=== PATIENT | female | born 1980 | race Caucasian/White ===

== ENCOUNTER 2016-07-16 12:07 | Outpatient (CLI) | payer BC, OTHER | END 2016-07-16 12:08 | disposition home or self-care (01) | DX: R42 Dizziness and giddiness (principal); R51 Headache; H53.9 Unspecified visual disturbance ==

== ENCOUNTER 2018-11-05 13:31 | Outpatient (CLI) | payer OTHER | END 2018-11-05 13:32 | disposition home or self-care (01) | LOC: NS 13:31 | PROVIDERS: ATTEND Family Medicine | DX: Z71.3 Dietary counseling and surveillance (principal); O24.419 Gestational diabetes mellitus in pregnancy, unspecified control | CPT/HCPCS: 97802 ==

== ENCOUNTER 2020-04-07 19:12 | Outpatient (CLI) | payer MEDICAID | END 2020-04-07 19:13 | disposition home or self-care (01) | LOC: COV 19:12 | PROVIDERS: ATTEND Family Medicine | DX: Z20.828 Contact with and (suspected) exposure to other viral communicable diseases (principal) ==

== ENCOUNTER 2020-05-06 12:15 | Outpatient (CLI) | payer MEDICAID | END 2020-05-06 12:16 | disposition home or self-care (01) | LOC: COV 12:15 | PROVIDERS: ATTEND Family Medicine | DX: R05 Cough (principal); J02.9 Acute pharyngitis, unspecified; R11.2 Nausea with vomiting, unspecified; Z20.828 Contact with and (suspected) exposure to other viral communicable diseases ==